=== PATIENT | female | born 2005 | race Caucasian/White ===

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

== ENCOUNTER 2024-01-19 00:30 | Emergency (ER) | payer OTHER ==
[~2024-01-19] VITALS: Ht 160 cm; Wt 89.8 kg
[2024-01-19 00:37] VITALS: BP 114/78; PULSE 54; RESP 18; TEMP 97.6; O2SAT 97
[2024-01-19 01:02] VITALS: O2SAT 97
[2024-01-19] MEDS ORDERED: IBUP-1842 PO (01:20)
[2024-01-19] MEDS ORDERED: ACET500T99 PO (01:20)
[2024-01-19 01:32] VITALS: BP 114/78; PULSE 54; RESP 18; TEMP 97.6; O2SAT 97
== END 2024-01-19 01:32 ==
LOC: MED 00:30
DX: L91.8 Other hypertrophic disorders of the skin (principal); L05.01 Pilonidal cyst with abscess; Z79.1 Long term (current) use of non-steroidal anti-inflammatories (NSAID)
CPT/HCPCS: 81025; 99283